=== PATIENT | female | born 1965 | race Caucasian/White ===

== ENCOUNTER 2021-12-13 14:27 | Outpatient (CLI) | payer OTHER | END 2021-12-13 14:28 | disposition home or self-care (01) | LOC: CSHMAMMO 14:27 | PROVIDERS: ATTEND Obstetrics & Gynecology | DX: Z12.31 Encounter for screening mammogram for malignant neoplasm of breast (principal); Z91.89 Other specified personal risk factors, not elsewhere classified; Z80.3 Family history of malignant neoplasm of breast | CPT/HCPCS: 77063; 77067 ==

== ENCOUNTER 2023-04-15 13:39 | Outpatient (CLI) | payer OTHER | END 2023-04-15 13:40 | disposition home or self-care (01) | LOC: CSHMAMMO 13:39 | PROVIDERS: ATTEND Obstetrics & Gynecology | DX: Z12.31 Encounter for screening mammogram for malignant neoplasm of breast (principal); Z80.3 Family history of malignant neoplasm of breast; Z91.89 Other specified personal risk factors, not elsewhere classified | CPT/HCPCS: 77063; 77067 ==

== ENCOUNTER 2024-07-29 10:45 | Outpatient (CLI) | payer OTHER | END 2024-07-29 10:46 | disposition home or self-care (01) | LOC: CSHMAMMO 10:45 | PROVIDERS: ATTEND Obstetrics & Gynecology | DX: Z12.31 Encounter for screening mammogram for malignant neoplasm of breast (principal); Z80.3 Family history of malignant neoplasm of breast; Z91.89 Other specified personal risk factors, not elsewhere classified | CPT/HCPCS: 77063; 77067 ==